=== PATIENT | male | born 1940 | race Caucasian/White ===

== ENCOUNTER 2024-08-08 14:48 | Outpatient (RCR) | payer BC, SELFPAY | END 2024-08-25 23:59 | disposition home or self-care (01) | LOC: SCTC 14:48 | PROVIDERS: PCP Internal Medicine; Referring Provider Internal Medicine; Visit Provider Radiology Therapeutic Radiology | DX: Z51.11 Encounter for antineoplastic chemotherapy (principal); C61 Malignant neoplasm of prostate; Z90.79 Acquired absence of other genital organ(s) | CPT/HCPCS: 96402; 99213; J9217; G0463 ==

== ENCOUNTER 2024-11-08 13:13 | Outpatient (RCR) | payer BC, SELFPAY | END 2024-11-23 23:59 | disposition home or self-care (01) | LOC: SCTC 13:13 | PROVIDERS: PCP Internal Medicine; Referring Provider Internal Medicine; Visit Provider Radiology Therapeutic Radiology | DX: Z51.11 Encounter for antineoplastic chemotherapy (principal); C61 Malignant neoplasm of prostate; Z90.79 Acquired absence of other genital organ(s); Z92.3 Personal history of irradiation; Z90.49 Acquired absence of other specified parts of digestive tract | CPT/HCPCS: 96402; 99212; J9217; G0463 ==

== ENCOUNTER 2025-05-07 15:36 | Outpatient (RCR) | payer BC, SELFPAY ==
--- NOTE | 2025-05-08 08:28 | CTCFLWUP_ITS ---
[facility] [address] [place], [place] [address] FOLLOW-UP NOTE Date: 05/07/2025 MR#: [id number] Name: SUSANNE INMAN : 1940 Dx: [id number] Malignant neoplasm of prostate . Identification. 85-year-old gentleman Robotic assisted simple prostatectomy for prostamegaly 09/14/2019 with findings of Nicolette score 7 prostate CA with subsequent salvage prostatectomy 03/24/2020 with bilateral lymph node dissection and right hemicolectomy. 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 Had postoperation radiation therapy 6250 centigray completed 05/01/2024. Completed 5 3 month Lupron injections the last one November 01, 2024 Patient's PSA has remained low 0.016 on 04/27/2025 Doing well overall with no sign of recurrence of colon or prostate cancer. Told patient that he can make an appointment with me on as needed basis. Electronically signed by: Perez Coyne M.D. 05/08/2025 8:26 AM
== END 2025-05-26 23:59 | disposition home or self-care (01) ==
LOC: SCTC 15:36
PROVIDERS: PCP Internal Medicine; Referring Provider Internal Medicine; Visit Provider Radiology Therapeutic Radiology
DX: Z08 Encounter for follow-up examination after completed treatment for malignant neoplasm (principal); Z85.46 Personal history of malignant neoplasm of prostate; Z85.038 Personal history of other malignant neoplasm of large intestine; Z92.3 Personal history of irradiation; Z90.79 Acquired absence of other genital organ(s); Z90.49 Acquired absence of other specified parts of digestive tract
CPT/HCPCS: 99213; G0463